=== PATIENT | male | born 2000 | race American Indian/Alaskan Native ===

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

== ENCOUNTER 2022-08-09 13:57 | Emergency (ER) | payer SELFPAY ==
[2022-08-09 14:39] VITALS: BP 146/76
[2022-08-09] MEDS ORDERED: LIDOCAINE-MPF (1%) 10 MG/1 ML VIAL 5 ML INFILTRATI ONE (17:33)
[2022-08-09] MEDS ORDERED: AZITHROMYCIN 1 GM ORAL PWDR PACKET PO ONE (17:33)
--- NOTE | 2022-08-09 17:47 | Emergency Department Report ---
Minor Respiratory - HPI Chief Complaint: Upper Respiratory Infection Stated Complaint: FEVER Time Seen by Provider: 08/09/22 16:08 Duration: 3 Days Pain Location: Nose Severity: mild Minor Respiratory: Yes Rhinorrhea, Yes Sore Throat, Yes Able to Tolerate Fluids, Yes Cough, Yes Sick Contacts, Yes Fever, No Ear Pain, No Hemoptysis, No Chest Pain, No Shortness of Breath Other History: 22-year-old male presents with subjective fever cough congestion, runny nose, which has been over the last 3 days. Reports his been around children who were positive for influenza A/b. Has been managing his symptoms with OTC medication. Denies chest pain, no productive cough, no hemoptysis, no nausea vomiting abdominal pain, no headache dizziness or vision changes. Also reports penile discharge which has been going on since yesterday, request to be tested and treated for STD. Patient is sexually active male without use of protections, female partners. No testicular pain, no flank pain, no abdominal pain. ED Review of Systems ROS: Stated complaint: FEVER Other details as noted in HPI Constitutional: chills, fever ENT: throat pain, congestion. denies: hearing loss Respiratory: cough. denies: shortness of breath, wheezing Cardiovascular: denies: chest pain, palpitations Endocrine: denies: excessive sweating Gastrointestinal: denies: abdominal pain, nausea Genitourinary: urgency, dysuria, frequency, discharge. denies: hematuria, testicular pain, testicular mass Musculoskeletal: denies: back pain Skin: denies: rash Neurological: denies: headache, weakness, numbness Psychiatric: denies: anxiety, depression ED Past Medical Hx - Past Medical History Hx Asthma: Yes Additional medical history: ADHD, Oppositional Defiant Disorder - Surgical History Additional Surgical History: oral - Social History Smoking Status: Never Smoker Substance Use Type: Marijuana - Medications Home Medications: Home Medications Medication Instructions Recorded Confirmed Last Taken Type Acetaminophen [Tylenol] 650 mg PO Q6H PRN #20 capsule 03/08/19 Unknown Rx Ibuprofen 600 mg PO Q8H PRN #20 tablet 03/08/19 Unknown Rx Minor Respiratory Exam - Exam General: Vital signs noted. No distress. Alert and acting appropriately. HEENT: Yes Moist Mucous Membranes, Yes Rhinorrhea, No Pharyngeal Erythema, No Pharyngeal Exudates, No Conjuctival Injection, No Frontal Tenderness, No Maxillary Tenderness Ear: Neither TM Bulge, Neither TM Erythema, Neither EAC Pain, Neither EAC Disch arge Neck: Yes Supple, No Adenopathy Lungs: Yes Good Air Exchange, No Wheezes, No Ronchi, No Stridor, No Cough, No Labored Respirations, No Retractions, No Use of Accessory Muscles, No Other Abnormal Lung Sounds Heart: Yes Regular, No Murmur Abdomen: No Tenderness, No Peritoneal Signs, No Normal Bowel Sounds Skin: No Rash, No Edema Neurologic: Alert and oriented, no deficits. Musculoskeletal: Unremarkable. ED Course Vital Signs 08/09/22 14:37 Temperature 99.1 F Pulse Rate 90 Respiratory 18 Rate Blood Pressure 146/76 [Right] O2 Sat by Pulse 99 Oximetry ED Medical Decision Making - Medical Decision Making 22-year-old male presents with subjective fever cough congestion, runny nose, which has been over the last 3 days. Reports his been around children who were positive for influenza A/b. Has been managing his symptoms with OTC medication. Denies chest pain, no productive cough, no hemoptysis, no nausea vomiting abdominal pain, no headache dizziness or vision changes. Also reports penile discharge which has been going on since yesterday, request to be tested and treated for STD. Patient is sexually active male without use of protections, female partners. No testicular pain, no flank pain, no abdominal pain. Patient has been stable throughout ED course, no fever, no guarding, ambulating steadily, sats has been above 95% without welfare interviewer muscle use. Patient has history and exam, GC chlamydia ordered, I have treated patient empirically with Rocephin and azithromycin which he tolerated well. Referred him to the health department for further STI testing. Otherwise rest of his symptoms are mostly viral, no indication for antibiotics or imaging at this time. Supportive therapy. Handwashing mask wearing with follow-up. Patient remained stable nontoxic-appearing, afebrile, ambulating steadily without assistance. Gone over ED findings with patient as well as plan for follow-up. Also discussed return precautions with patient, all questions and concerns addressed. Patient is stable to be discharged follow-up outpatient. Audio voice dictation device used, hence the chart might contain some dictation errors, mispronunciations, wrong spelling and wrong verbiage. Critical care attestation.: If time is entered above; I have spent that time in minutes in the direct care of this critically ill patient, excluding procedure time. ED Disposition Clinical Impression: URI with cough and congestion, Penile discharge, Encounter for assessment of STD exposure Disposition: HOME / SELF CARE / HOMELESS Is pt being admited?: No Does the pt Need Aspirin: No Condition: Stable Instructions: Upper Respiratory Infection, Adult, [id number], Safe Sex Additional Instructions: No sexual activities until you have been cleared make she get tested at the health department, also make your partners get tested as well. Always wear a condom for Referrals: [facility] [Outside] - 3-5 Days Forms: Work/School Release Form(ED)
[2022-08-09 19:17] LABS: Mucus,Urine FEW /HPF
[2022-08-09 19:37] LABS: Color,Urine Yellow (Yellow)
== END 2022-08-09 18:27 | disposition home or self-care (01) ==
LOC: ED 13:57
DX: J06.9 Acute upper respiratory infection, unspecified (principal); R36.9 Urethral discharge, unspecified; Z11.3 Encounter for screening for infections with a predominantly sexual mode of transmission; R05.9 Cough, unspecified; J45.909 Unspecified asthma, uncomplicated
CPT/HCPCS: 81001; 87591; 96372; 99283; J0696; J3490